=== PATIENT | female | born 1975 | race Caucasian/White ===

== ENCOUNTER 2020-01-08 11:36 | Emergency (ER) | payer MEDICAID ==
[~2020-01-08] VITALS: Ht 157.5 cm; Wt 63.0 kg
[2020-01-08 12:24] LABS: BASOPHILS % 0.3 % (0.0-2.0); EOSINOPHILS % 0.3 % (0.0-5.0); HEMATOCRIT. 29.6 % (36.0-48.0); HEMOGLOBIN. 9.3 g/dL (12.0-16.0); LYMPHOCYTES % 41.5 % (20.0-50.0); MEAN CORPUSCULAR HEMOGLOBIN 22.1 pg (28.0-32.0); MONOCYTES % 8.5 % (2.0-8.0); NEUTROPHILS % 49.4 % (40.0-76.0); PLATELET 311 x1000/uL (130-400); RED BLOOD CELL COUNT 4.23 mill/uL (4.2-5.4); RED CELL DISTRIBUTION WIDTH 18.1 % (11.6-14.6)
[2020-01-08 12:30] LABS: CHLORIDE 112 mEq/L (98-107)
[2020-01-08 12:42] LABS: PLATELET ESTIMATE NORMAL
[2020-01-08 13:23] VITALS: BP 117/89
== END 2020-01-08 13:28 | disposition home or self-care (01) ==
LOC: ER 11:36
DX: U07.1 COVID-19 (principal); B34.9 Viral infection, unspecified
CPT/HCPCS: 36415; 71045; 80053; 81025; 85025; 87635; 93005; 99284; C9803

== ENCOUNTER 2020-01-14 13:04 | Emergency (ER) | payer MEDICAID ==
[~2020-01-14] VITALS: Ht 154.9 cm; Wt 64.0 kg
[2020-01-14] MEDS ORDERED: IBUPROFEN 600MG TABLET PO ONE (14:00)
[2020-01-14 16:30] VITALS: BP 115/76
== END 2020-01-14 17:22 | disposition home or self-care (01) ==
LOC: ER 13:04
DX: M94.0 Chondrocostal junction syndrome [Tietze] (principal)
CPT/HCPCS: 71045; 93005; 99283

== ENCOUNTER 2020-02-07 13:52 | Emergency (ER) | payer MEDICAID ==
[~2020-02-07] VITALS: Ht 162.6 cm; Wt 90.0 kg
[2020-02-07] MEDS ORDERED: KETOROLAC 60MG/2ML VIAL IM STA (14:46)
[2020-02-07 15:51] LABS: BASOPHILS % 0.6 % (0.0-2.0); EOSINOPHILS % 1.2 % (0.0-5.0); HEMATOCRIT. 28.7 % (36.0-48.0); LYMPHOCYTES % 27.2 % (20.0-50.0); MEAN CORPUSCULAR HEMOGLOBIN 22.3 pg (28.0-32.0); MEAN CORPUSCULAR VOLUME 70.9 fL (81.0-99.0); MEAN PLATELET VOLUME 7.5 fl (7.4-10.4); MONOCYTES % 6.5 % (2.0-8.0); NEUTROPHILS % 64.5 % (40.0-76.0); PLATELET 401 x1000/uL (130-400); RED BLOOD CELL COUNT 4.05 mill/uL (4.2-5.4); RED CELL DISTRIBUTION WIDTH 20.1 % (11.6-14.6)
[2020-02-07 15:54] LABS: CHLORIDE 107 mEq/L (98-107)
[2020-02-07 15:58] LABS: CLARITY URINE CLEAR (CLEAR); COLOR URINE YELLOW (YELLOW); KETONES URINE NEGATIVE (NEGATIVE); LEUKOCYTE ESTERASE URINE 1+ (NEGATIVE); NITRITE URINE NEGATIVE (NEGATIVE); OCCULT BLOOD URINE 3+ (NEGATIVE); PROTEIN URINE NEGATIVE (NEGATIVE); SPECIFIC GRAVITY URINE 1.022 (1.005-1.030); UROBILINOGEN URINE 0.2 E.U./dL (0.2-1.0)
[2020-02-07] MEDS ORDERED: METHOCARBAMOL 750MG TABLET PO SCH (17:00)
[2020-02-07] MEDS ORDERED: HYDROCODONE/ACETAMINOPHEN 5/325MG TABLET PO ONE (17:00)
[2020-02-07 17:29] VITALS: BP 111/62
== END 2020-02-07 18:44 | disposition home or self-care (01) ==
LOC: ER 13:52
DX: M54.9 Dorsalgia, unspecified (principal); R00.0 Tachycardia, unspecified; Z86.19 Personal history of other infectious and parasitic diseases
CPT/HCPCS: 36415; 71045; 80053; 81003; 81025; 84484; 85025; 93005; 96372; 99285; J1885

== ENCOUNTER 2023-11-06 16:42 | Emergency (ER) | payer BC, MEDICAID ==
[~2023-11-06] VITALS: Ht 160 cm; Wt 81.0 kg
[2023-11-06 16:52] VITALS: BP 142/74; PULSE 84; RESP 18; TEMP 98.5; O2SAT 98
[2023-11-06] MEDS ORDERED: NAPR500T7 MT (17:56)
== END 2023-11-06 19:39 | disposition home or self-care (01) ==
LOC: ER 16:42
DX: S61.211A Laceration without foreign body of left index finger without damage to nail, initial encounter (principal); E03.9 Hypothyroidism, unspecified; X58.XXXA Exposure to other specified factors, initial encounter; Y93.89 Activity, other specified; Y92.89 Other specified places as the place of occurrence of the external cause; Y99.8 Other external cause status
CPT/HCPCS: 12001; 99282; Z7610 ×2